=== PATIENT | male | born 1985 | race Caucasian/White ===

== ENCOUNTER 2017-08-27 15:03 | Emergency (ER) | payer OTHER ==
[~2017-08-27] VITALS: Ht 193 cm; Wt 81.6 kg
[~2017-08-27 15:03] MED LIST: CLON1TAB PO; ZIPR60CA2 PO
--- NOTE | 2017-08-27 15:05 | NUR ---
Note sharla in EDM - 08/27/17 at 1643 by DEBBIE [facility]IB [facility] from [facility] for fever, nad noted, vss, resp even and unlabored. pt was put on monitor, at .
[2017-08-27] MEDS ORDERED: LORAZEPAM INJ 2 MG/ML VIAL IV ONE (15:30)
[2017-08-27] MEDS ORDERED: Thiamine 100 MG in IV D5W 50 ML IV SCH (15:30)
[2017-08-27] MEDS ORDERED: IV NS 0.9% 1,000 ML BAG IV ONE (15:30)
[2017-08-27] MEDS ORDERED: LORAZEPAM INJ 2 MG/ML VIAL ONE (15:33)
[2017-08-27 15:43] LABS: BASOPHILS # (AUTO) 0.3 /CMM (0.0-0.2); BASOPHILS % (AUTO) 2.5 % (0.0-2.0); EOSINOPHILS % (AUTO) 0.8 % (0.0-6.0); HEMATOCRIT 47 % (39-51); HEMOGLOBIN 16.2 g/dL (13.5-17.5); LYMPHOCYTES # (AUTO) 2.4 /CMM (0.8-4.8); LYMPHOCYTES % (AUTO) 18.1 % (20.0-44.0); MEAN CORPUSCULAR HGB CONC 34 g/dl (31.0-36.0); MEAN CORPUSCULAR VOLUME 90 fL (80-96); MONOCYTES # (AUTO) 1.3 /CMM (0.1-1.30); MONOCYTES % (AUTO) 9.7 % (2.0-12.0); NEUTROPHILS # (AUTO) 9.1 /CMM (1.8-8.9); NEUTROPHILS % (AUTO) 68.9 % (43.0-81.0); PLATELET COUNT (AUTO) 337 /CMM (150-450); RDW COEFFICIENT OF VARIATION 12.5 (11.5-15.0); RED BLOOD CELL COUNT(AUTO) 5.29 MIL/uL (4.5-6.0); WHITE BLOOD COUNT (AUTO) 13.2 K/uL (4.3-11.0)
[2017-08-27 15:55] LABS: CALCIUM, SERUM 9.2 mg/dL (8.5-10.1); CARBON DIOXIDE 26 mmol/L (21-32); CHLORIDE 106 mmol/L (98-107); CREATININE 0.9 mg/dL (0.6-1.3); GLUCOSE 106 mg/dL (74-106); POTASSIUM 4.1 mmol/L (3.5-5.1); SODIUM SERUM 140 mmol/L (136-145); UREA NITROGEN, BLOOD 17 mg/dL (7-18)
[2017-08-27] MEDS ORDERED: THIAMINE HCL 100 MG TABLET ONE (15:57)
[2017-08-27 16:08] LABS: ALANINE AMINOTRANSFERASE 36 U/L (12-78); ALBUMIN 3.6 g/dL (3.4-5.0); ALKALINE PHOSPHATASE 73 U/L (46-116); ASPARTATE AMINOTRANSFERASE 20 U/L (15-37); BILIRUBIN,DIRECT 0.1 mg/dL (0.0-0.2); BILIRUBIN,TOTAL 0.3 mg/dL (0.2-1.0); TOTAL PROTEIN, SERUM 7.3 g/dL (6.4-8.2)
[2017-08-27 16:10] LABS: ACETAMINOPHEN < 2 ug/ml (10-30); ALCOHOL, BLOOD 0 mg/dL (0-0); SALICYLATE 1.5 mg/dL (2.8-20.0)
--- NOTE | 2017-08-27 16:40 | NUR ---
DSICHARGED IN POLICE CUSTODY; OK TO BOOK. PT AND POLICE VERBALIZE UNDERSTANDING. AMBULATORY WITH STEADY GAIT.
[2017-08-27 16:45] VITALS: BP 145/80
--- NOTE | 2017-08-27 16:46 | NUR ---
OTB, "I'M WITHDRAWING FROM ATIVAN AND ALCOHOL" REPORTS CHEST PRESSURE, VISUAL HALLUCINATIONS. 2 DAYS SINCE LAST USE. NAD NOTED, VSS, RESP EVEN AND UNLABORED, PT WAS PUT ON MONITOR. AT BS.
--- NOTE | 2017-08-27 16:47 | NUR ---
IV removed. Catheter intact and site benign. Pressure and 4x4 applied to site. No bleeding noted.
[2017-08-27] MEDS ORDERED: THIAMINE HCL 100 MG TABLET PO ONE (17:00)
== END 2017-08-27 16:48 ==
LOC: ER 15:05
DX: F13.239 Sedative, hypnotic or anxiolytic dependence with withdrawal, unspecified (principal); F10.239 Alcohol dependence with withdrawal, unspecified; F41.9 Anxiety disorder, unspecified; F17.200 Nicotine dependence, unspecified, uncomplicated; Z98.890 Other specified postprocedural states
CPT/HCPCS: 36415; 71045-TC; 80048-TC; 80076-TC; 84484-TC; 85025-TC; A4606; G0480; J2060; J3411; J7030; J7060; Z7610

== ENCOUNTER 2017-10-15 07:38 | Emergency (ER) | payer MEDICAID, OTHER ==
[~2017-10-15] VITALS: Ht 193 cm; Wt 82.6 kg
[2017-10-15 07:44] VITALS: BP 132/77
== END 2017-10-15 09:01 | disposition home or self-care (01) ==
LOC: ER 07:39
DX: S93.491A Sprain of other ligament of right ankle, initial encounter (principal); F17.200 Nicotine dependence, unspecified, uncomplicated; F41.9 Anxiety disorder, unspecified; Z98.890 Other specified postprocedural states; Z90.89 Acquired absence of other organs; Z79.899 Other long term (current) drug therapy; X50.1XXA Overexertion from prolonged static or awkward postures, initial encounter; Y93.02 Activity, running; Y92.89 Other specified places as the place of occurrence of the external cause; Y99.8 Other external cause status
CPT/HCPCS: 73610; 99284; A4606; Z7610